=== PATIENT | male | born 1955 | race Caucasian/White ===

== ENCOUNTER 2021-11-11 16:47 | Emergency (ER) | payer MEDICARE, SELFPAY ==
--- NOTE | ~2021-11-11 | XR_ITS ---
XR tibia fibula RT 2V 11/11/2021 18:28 Indication: Right knee pain Procedure: 4 views right knee Comparison: No prior studies for comparison. Findings: Severe osteoarthritis of the right knee. No fracture, subluxation or dislocation. No signif icant soft tissue abnormality. No foreign bodies. Impression: 1: Severe osteoarthritis of the right knee. Reviewed, dictated and finalized at location B. 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
--- NOTE | ~2021-11-11 | CT_ITS ---
EXAMINATION: CTA LE RT DATE: 11/11/2021 21:03 INDICATION: Sudden onset right lower extremity pain TECHNIQUE: Computed tomographic angiography (CTA) of the right lower extremity was performed with 150 mL Omnipaque-350 intravenous contrast. The dose-length product (DLP) was 1246.63 mGy-cm. Maximum int ensity projection 3D-reconstructions of the arteries were created by the technologist on a separate w orkstation. Automated exposure control and iterative reconstruction technique were employed. COMPARISON: None. FINDINGS: CTA: There is mild atherosclerosis without hemodynamically significant stenosis of the pelvic vascula ture. Contrast bolus timing is somewhat late for evaluation of the lower extremity arteries. There is calcified atherosclerosis without hemodynamically significant stenosis. There is a three-vessel runo ff at the ankle. ADDITIONAL FINDINGS: There is severe lumbar spondylosis at L5-S1. There is advanced osteoarthritis of the knee. Mild osteo arthritis is noted in the hip. IMPRESSION: 1. Mild atherosclerosis without hemodynamically significant stenosis. Three-vessel runoff at the ankl e. Reviewed, dictated and finalized at location F. ESCORT IMPRESSION: 1. Mild atherosclerosis without hemodynamically significant stenosis. Three-ves kimberly runoff at the ankle.
--- NOTE | ~2021-11-11 | US_ITS ---
EXAMINATION:US venous doppler LE RT INDICATION:Right calf pain TECHNIQUE: Multiple grayscale, color flow and Doppler images of the right lower extremity deep venous systems were obtained and reviewed. COMPARISON:No prior studies for comparison. FINDINGS: The common femoral, superficial femoral and popliteal veins demonstrate normal respiratory variation, augmentation and compressibility. Color flow is also seen within the posterior tibial, pe roneal, greater saphenous and profunda veins. IMPRESSION: 1: No lower extremity deep venous thrombosis. Reviewed, dictated and finalized at location B. 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
[2021-11-11 16:49] VITALS: BP 189/90; PULSE 78; RESP 18; TEMP 36.2; O2SAT 98
[2021-11-11] MEDS: ONDANSETRON HCL ODT 4 MG TABLET PO (17:59)
[2021-11-11] MEDS: HYDROmorphone HCL INJ (*CRX) 1 MG/ML SYR IM (17:59)
[2021-11-11 18:58] LABS: Basophils Absolute Auto 0.1 K/mm3 (0.0-0.1); Basophils Percent Auto 0.8 % (0.2-1.2); Eosinophils Percent Auto 0.1 % (0-4.4); Hematocrit 42.8 % (42.0-52.0); Hemoglobin 14.8 g/dL (14.0-18.0); Immature Granulocyte Absolute 0.03 K/mm3 (0.00-0.031); Immature Granulocyte Percent A 0.3 % (0-0.5); Lymphocytes Absolute Auto 1.03 K/mm3 (0.9-3.2); Lymphocytes Percent Auto 11.8 % (18.3-44.2); Mean Corpuscular HGB Conc 34.6 g/dl (32-36); Mean Corpuscular Hemoglobin 31.3 pg (26-34); Mean Corpuscular Volume 90.5 fl (80-100); Mean Platelet Volume 10.3 fl (7.4-10.4); Monocytes Absolute Auto 0.5 K/mm3 (0.1-0.6); Monocytes Percent Auto 5.1 % (2.6-8.5); Neutrophils Absolute Auto 7.2 K/mm3 (1.3-6.7); Neutrophils Percent Auto 81.9 % (45.5-73.1); Platelet Count Result 172 k/mm3 (150-375); Red Blood Count 4.73 M/mm3 (4.6-6.20); Red Cell Distribution Width 13.1 % (11.5-14.5); White Blood Count 8.7 K/mm3 (4.5-10.0)
[2021-11-11 19:07] LABS: Alanine Aminotransferase 17 U/L (4-50); Albumin Level 4.6 g/dL (3.5-5.1); Alkaline Phosphatase 71 U/L (38-126); Anion Gap 8 mmol/L (8-16); Aspartate Amino Transferase 28 U/L (17-59); Bilirubin,Total 0.8 mg/dL (0.2-1.3); Blood Urea Nitrogen 15 mg/dL (9-20); CRP 0.5 mg/dL (<1.0); Calcium 8.6 mg/dL (8.4-10.2); Carbon Dioxide 24 mmol/L (22-30); Chloride 106 mmol/L (98-107); Creatine Kinase 137 U/L (55-170); Estimated CRCL calculation 118 ml/min; Estimated Glomerular Filt Rate > 60; Glucose 122 mg/dL (65-110); Potassium 3.7 mmol/L (3.4-5.0); Sodium 138 mmol/L (137-145)
[2021-11-11 19:08] LABS: INR 1.2; Prothrombin Time 14.4 Seconds (11.1-14.7)
[2021-11-11 19:09] LABS: Partial Thromboplastin Time 31.3 SECONDS (22.3-36.8)
--- NOTE | 2021-11-11 19:17 | ED.LOWEXIN ---
HPI - Extremity Injury (Lower) General Chief Complaint: Extremity Injury, Lower Stated Complaint: leg pain Time Seen by Provider: 11/11/21 17:42 Source: patient and RN notes reviewed Mode of arrival: ambulatory Limitations: no limitations History of Present Illness HPI Narrative: This is a 66 year old male with history of hypertension who presents for evaluation of right leg pain. Patient has been driving 4 hours to come to a . He developed severe burning right lateral calf pain when he was walking around. He has taken ibuprofen and tylenol without any improvement in pain. He states it feels like it is cramp but states it can not be a leg cramp. He denies numbness or tingling. He denies fever, chest pain or shortness of breath. He denies history of blood clots. Related Data Allergies Allergy/AdvReac Type Severity Reaction Status Date / Time ixekizumab AdvReac Sneezing Verified 11/11/21 16:53 [From [employer] Auto[employer]or] Review of Systems Review of Systems: All systems reviewed & are unremarkable except as noted in HPI and below PMFSH Past Medical History Medical History (Updated 11/11/21 @ 21:23 by Cathleen Greene MD) Arrhythmia Hypertension Social History Social History (Updated 11/11/21 @ 19:20 by Cathleen Greene MD) Smoking status: Never smoker Exam Const: General: alert Nutritional Appearance: obese Orientation/consciousness: patient oriented x3 Eyes: EOM: EOMs intact bilaterally Resp: Effort & Inspection: normal respiratory effort and no retractions Auscultation: clear to auscultation bilaterally Cardio: Rate: regular rate Rhythm: regular rhythm GI: GI Palp: Yes Soft to palpation, No Tenderness to palpation present (GI) and No Guarding due to palpation present (GI) Auscultation: normal bowel sounds Neuro: General: patient oriented x3, moves all extremities and CN's II-XI intact bilaterally Extrem: General: no pedal edema Other: mild bilateral lower extremity swelling, palpable right PT/DP, no erythema, FROM Psych: Mental Status: mental status grossly normal Affect: normal affect Course Reevaluation(s) Reevaluation #1: On arrival patient reported pain 10/10. Nothing make pain better or worsen. Now PAtient reports improvement in pain. LAbs are unremarkable. US has rule out DVT and CTA rule out acute arterial thrombus as cause of sudden onset patient. Date: 11/11/21 Time: 21:21 Vital Signs Vital signs: Vital Signs Temperature 97.2 F L 11/11/21 16:49 Pulse Rate 78 11/11/21 16:49 Respiratory Rate 18 11/11/21 16:49 Blood Pressure 189/90 H 11/11/21 16:49 Pulse Oximetry 98 11/11/21 16:49 Temperature 97.2 F L 11/11/21 16:49 Pulse Rate 82 11/11/21 21:38 Respiratory Rate 16 11/11/21 21:38 Blood Pressure 152/109 H 11/11/21 21:38 Pulse Oximetry 98 11/11/21 21:38 MDM - Extremity Injury (Lower) Lab Data Attestation: I reviewed the patient's lab results. Result diagrams: 11/11/21 18:41 11/11/21 18:41 Labs: Lab Results 11/11/21 11/11/21 11/11/21 Range/Units 18:41 18:41 18:41 WBC 8.7 (4.5-10.0) K/mm3 RBC 4.73 (4.6-6.20) M/mm3 Hgb 14.8 (14.0-18.0) g/dL Hct 42.8 (42.0-52.0) % MCV 90.5 (80-100) fl MCH 31.3 (26-34) pg MCHC 34.6 (32-36) g/dl RDW 13.1 (11.5-14.5) % Plt Count 172 (150-375) k/mm3 MPV 10.3 (7.4-10.4) fl Immature Gran % (Auto) 0.3 (0-0.5) % Neut % (Auto) 81.9 H (45.5-73.1) % Lymph % (Auto) 11.8 L (18.3-44.2) % Wake % (Auto) 5.1 (2.6-8.5) % Eos % (Auto) 0.1 (0-4.4) % Baso % (Auto) 0.8 (0.2-1.2) % Lymph # (Auto) 1.03 (0.9-3.2) K/mm3 Wake # (Auto) 0.5 (0.1-0.6) K/mm3 Eos # (Auto) 0.0 (0-0.3) K/mm3 Baso # (Auto) 0.1 (0.0-0.1) K/mm3 Abs Immat Gran (auto) 0.03 (0.00-0.031) K/mm3 Absolute Neuts (auto) 7.2 H (1.3-6.7) K/mm3 Absolute Nucleated RBC 0.0 (0.0-0.012) K/mm3 Nucleate
[2021-11-11 21:38] VITALS: BP 152/109; PULSE 82; RESP 16; O2SAT 98
[2021-11-11] MEDS: BACLOFEN 5 MG TABLET PO (21:54)
== END 2021-11-11 21:58 | disposition home or self-care (01) ==
PROVIDERS: Emergency Provider General Practice
DX: M79.661 Pain in right lower leg (principal); I10 Essential (primary) hypertension; M17.11 Unilateral primary osteoarthritis, right knee; I70.8 Atherosclerosis of other arteries; M47.816 Spondylosis without myelopathy or radiculopathy, lumbar region
CPT/HCPCS: 36415; 73590; 73706; 80053; 82550; 85025; 85610; 85730; 86140; 93971; 96372; 99284; A9270; J1170; Q9967